=== PATIENT | male | born 1950 | race Native Hawaiian/Other Pacific Islander ===

== ENCOUNTER 2018-04-09 07:36 | Day surgery (SDC) | payer OTHER ==
[~2018-04-09 07:36] MED LIST: ACET7.5T70 PO; AMIO200T14 PO; ASA LO-DOSE81 MG OR; CARV3.12 PO; DOCU100C10 PO; FURO40TA93 PO; GABA100C2 PO; KLOR-CON M2020 MEQ OR; MENS MULTI OR; MOBIC7.5 M1 OR; NITROSTAT0.4 MG SL; RANO500T PO; SIMV20TA2 PO; TRIM800T12 PO; [UNRECOGNIZED DRUG - OTHER] OR
[2018-04-09 08:38] LABS: PLATELET COUNT 310 K/uL (142-355)
[2018-04-09 08:49] LABS: POTASSIUM 4.1 mmol/L (3.6-5.2)
[2018-04-09 08:52] LABS: PARTIAL THROMBOPLASTIN TIME 26.3 SECONDS (24.5-33.6)
== END 2018-04-09 11:32 | disposition home or self-care (01) ==
LOC: OR 07:36
PROVIDERS: Student in an Organized Health Care Education/Training Program
PROC: 0DBK8ZZ Excision of Ascending Colon, Via Natural or Artificial Opening Endoscopic (ICD-10-PCS; principal; 2018-04-09)
PROC: 0DBM8ZZ Excision of Descending Colon, Via Natural or Artificial Opening Endoscopic (ICD-10-PCS; 2018-04-09)
DX: K63.5 Polyp of colon (principal); D12.3 Benign neoplasm of transverse colon; K57.30 Diverticulosis of large intestine without perforation or abscess without bleeding; Z12.11 Encounter for screening for malignant neoplasm of colon
CPT/HCPCS: 80053; 85027; 85610; 85730; 93005; J2001; J2250; J2704; J3490

== ENCOUNTER 2019-02-09 19:43 | Outpatient (CLI) | payer OTHER ==
[2019-02-09] MEDS ORDERED: BENZONATATE200 MG PO (20:24)
[2019-02-09] MEDS ORDERED: DOCUSATE SODIUM1 TAB PO (20:24)
[2019-02-09] MEDS ORDERED: TRAMADOL HYDROC50 MG PO (20:25)
[2019-02-09] MEDS ORDERED: NEURONTIN 100M100 MG PO (20:26)
[2019-02-09] MEDS ORDERED: ROBAXIN-750750 MG PO (20:26)
[2019-02-09] MEDS ORDERED: SLEEP AID25 M2 PO (20:27)
[2019-02-10] MEDS ORDERED: RANO500T PO (08:50)
[2019-02-10] MEDS ORDERED: CARV3.12 PO (10:16)
[2019-02-10] MEDS ORDERED: FURO40TA93 PO (10:17)
[2019-02-10] MEDS ORDERED: POTASSIUM CHLO20 ME1 PO (10:18)
== END 2019-02-09 19:46 | disposition short-term general hospital (02) ==
LOC: AMB 19:43
DX: R50.9 Fever, unspecified (principal); M54.9 Dorsalgia, unspecified; M54.2 Cervicalgia
CPT/HCPCS: A0425; A0427

== ENCOUNTER 2019-02-09 19:50 | Inpatient (IN) | payer OTHER ==
[~2019-02-09] VITALS: Ht 177.8 cm; Wt 133.9 kg
[2019-02-09 20:10] VITALS: BP 177/87; TEMP 103.1
[2019-02-09 20:17] LABS: PLATELET COUNT 317 K/uL (142-355)
[2019-02-09] MEDS ORDERED: DOCUSATE SODIUM1 TAB PO (20:24)
[2019-02-09] MEDS ORDERED: BENZONATATE200 MG PO (20:24)
[2019-02-09] MEDS ORDERED: TRAMADOL HYDROC50 MG PO (20:25)
[2019-02-09] MEDS ORDERED: ROBAXIN-750750 MG PO (20:26)
[2019-02-09] MEDS ORDERED: NEURONTIN 100M100 MG PO (20:26)
[2019-02-09] MEDS ORDERED: SLEEP AID25 M2 PO (20:27)
[2019-02-09 20:41] LABS: POTASSIUM 3.7 mmol/L (3.6-5.2); SODIUM 133 mmol/L (136-145)
[2019-02-09 22:33] VITALS: TEMP 101.1
[2019-02-10] VITALS (7 sets, daily range): BP systolic 84–130; BP diastolic 44–74; TEMP 97.7–100.3; Ht 177.8 cm; Wt 133.9 kg
[2019-02-10 06:20] LABS: PLATELET COUNT 243 K/uL (142-355)
[2019-02-10 06:37] LABS: POTASSIUM 4.1 mmol/L (3.6-5.2)
[2019-02-10] MEDS ORDERED: RANO500T PO (08:50)
[2019-02-10] MEDS ORDERED: CARV3.12 PO (10:16)
[2019-02-10] MEDS ORDERED: FURO40TA93 PO (10:17)
[2019-02-10] MEDS ORDERED: POTASSIUM CHLO20 ME1 PO (10:18)
== END 2019-02-10 20:20 | disposition short-term general hospital (02) | DRG 871 ==
LOC: ED 19:50 → MED/SURG 23:50
PROVIDERS: ADMIT Family Medicine
DX: A40.1 Sepsis due to streptococcus, group B (principal); J18.8 Other pneumonia, unspecified organism; I26.99 Other pulmonary embolism without acute cor pulmonale; N17.8 Other acute kidney failure; E87.1 Hypo-osmolality and hyponatremia; E11.9 Type 2 diabetes mellitus without complications; G47.09 Other insomnia; R11.10 Vomiting, unspecified; I10 Essential (primary) hypertension; I95.89 Other hypotension; E86.1 Hypovolemia; I25.2 Old myocardial infarction; Z95.1 Presence of aortocoronary bypass graft
CPT/HCPCS: 36600; 80053; 81000; 82550; 82553; 82805; 83605; 83880; 84484; 85007; 85027; 85379; 85610; 86140; 87040; 87077; 87185; 87186; 87205; 87899; 93005; 94664; 94760; 96361; 96365; 96375; 96376; 99284; J0456; J0696; J1650; J2405; J3370

== ENCOUNTER 2019-02-14 12:43 | Outpatient (CLI) | payer OTHER ==
[~2019-02-14] VITALS: Ht 177.8 cm; Wt 135.8 kg
[~2019-02-14 12:43] MED LIST changes: +BENZONATATE200 MG PO; +DOCUSATE SODIUM1 TAB PO; +NEURONTIN 100M100 MG PO; +POTASSIUM CHLO20 ME1 PO; +ROBAXIN-750750 MG PO; +SLEEP AID25 M2 PO; +TRAMADOL HYDROC50 MG PO
[2019-02-14 12:55] VITALS: BP 119/56; TEMP 97.9
== END 2019-02-14 14:21 | disposition home or self-care (01) ==
LOC: INF 12:43
DX: A40.1 Sepsis due to streptococcus, group B (principal); R65.20 Severe sepsis without septic shock
CPT/HCPCS: 96365; 96375; J0696

== ENCOUNTER 2019-02-15 13:03 | Outpatient (CLI) | payer OTHER ==
[~2019-02-15] VITALS: Ht 175.3 cm; Wt 70.5 kg
== END 2019-02-15 14:45 | disposition home or self-care (01) ==
LOC: INF 13:03
DX: A41.9 Sepsis, unspecified organism (principal)
CPT/HCPCS: 96365; 96375; J0696; J1642

== ENCOUNTER 2019-02-16 13:46 | Outpatient (CLI) | payer OTHER ==
[~2019-02-16] VITALS: Ht 175.3 cm; Wt 70.5 kg
== END 2019-02-16 14:30 | disposition home or self-care (01) ==
LOC: INF 13:46
DX: A40.1 Sepsis due to streptococcus, group B (principal)
CPT/HCPCS: 96365; 96375; J0696; J1642

== ENCOUNTER 2019-02-17 12:45 | Outpatient (CLI) | payer OTHER ==
[~2019-02-17] VITALS: Ht 175.3 cm; Wt 70.5 kg
[2019-02-17 13:05] VITALS: BP 134/70; TEMP 97.8
== END 2019-02-17 13:58 | disposition home or self-care (01) ==
LOC: INF 12:45
DX: A40.1 Sepsis due to streptococcus, group B (principal)
CPT/HCPCS: 96365; 96375; J0696

== ENCOUNTER 2019-02-18 12:12 | Outpatient (CLI) | payer OTHER ==
[~2019-02-18] VITALS: Ht 175.3 cm; Wt 61.4 kg
[2019-02-18 13:00] VITALS: BP 151/61; TEMP 98.6
== END 2019-02-18 13:45 | disposition home or self-care (01) ==
LOC: INF 12:12
DX: A40.1 Sepsis due to streptococcus, group B (principal)
CPT/HCPCS: 96365; 96375; J0696

== ENCOUNTER 2019-02-19 11:17 | Outpatient (CLI) | payer OTHER ==
[~2019-02-19] VITALS: Ht 175.3 cm; Wt 135.8 kg
[2019-02-19 12:40] VITALS: BP 170/84; TEMP 97.6
== END 2019-02-19 13:39 | disposition home or self-care (01) ==
LOC: INF 11:17
DX: A40.1 Sepsis due to streptococcus, group B (principal)
CPT/HCPCS: 96365; 96375; J0696

== ENCOUNTER 2019-02-20 11:38 | Outpatient (CLI) | payer OTHER ==
[~2019-02-20] VITALS: Ht 175.3 cm; Wt 135.8 kg
[2019-02-20 12:46] VITALS: BP 136/76; TEMP 97.8
== END 2019-02-20 14:09 | disposition home or self-care (01) ==
LOC: INF 11:38
DX: A40.1 Sepsis due to streptococcus, group B (principal)
CPT/HCPCS: 96365; 96375; J0696

== ENCOUNTER 2019-02-21 12:30 | Outpatient (CLI) | payer OTHER ==
[~2019-02-21] VITALS: Ht 33 cm; Wt 0.5 kg
[2019-02-21 12:55] VITALS: BP 135/77; TEMP 98
== END 2019-02-21 13:43 | disposition home or self-care (01) ==
LOC: INF 12:30
DX: A40.1 Sepsis due to streptococcus, group B (principal)
CPT/HCPCS: 96365; 96375; J0696

== ENCOUNTER 2019-02-22 12:56 | Outpatient (CLI) | payer OTHER | END 2019-02-22 13:41 | disposition home or self-care (01) | LOC: INF 12:56 | DX: A40.1 Sepsis due to streptococcus, group B (principal) | CPT/HCPCS: 96365; 96375 ==

== ENCOUNTER 2019-02-23 12:54 | Outpatient (CLI) | payer OTHER | END 2019-02-23 13:35 | disposition home or self-care (01) | LOC: INF 12:54 | DX: A40.1 Sepsis due to streptococcus, group B (principal) | CPT/HCPCS: 96365 ==

== ENCOUNTER 2019-12-26 18:05 | Emergency (ER) | payer OTHER ==
[~2019-12-26] VITALS: Ht 180.3 cm; Wt 128.4 kg
[2019-12-26 21:18] LABS: PLATELET COUNT 333 K/uL (142-355)
[2019-12-26 21:37] LABS: POTASSIUM 4.3 mmol/L (3.6-5.2)
[2019-12-26 22:40] VITALS: BP 175/82; TEMP 98.1
== END 2019-12-26 22:40 | disposition home or self-care (01) ==
LOC: ED 18:05
PROVIDERS: Family Medicine
DX: S80.812A Abrasion, left lower leg, initial encounter (principal); S20.212A Contusion of left front wall of thorax, initial encounter; S80.02XA Contusion of left knee, initial encounter; W18.39XA Other fall on same level, initial encounter; Y92.89 Other specified places as the place of occurrence of the external cause
CPT/HCPCS: 36415; 80053; 81000; 85027; 99283

== ENCOUNTER 2022-11-19 08:52 | Emergency (ER) | payer OTHER ==
[~2022-11-19] VITALS: Ht 180.3 cm; Wt 128.4 kg
[2022-11-19 08:52] VITALS: TEMP 97.2
[2022-11-19 11:30] VITALS: BP 206/99
== END 2022-11-19 11:30 | disposition home or self-care (01) ==
LOC: ED 08:52
DX: S72.112A Displaced fracture of greater trochanter of left femur, initial encounter for closed fracture (principal); W01.0XXA Fall on same level from slipping, tripping and stumbling without subsequent striking against object, initial encounter; Y92.89 Other specified places as the place of occurrence of the external cause
CPT/HCPCS: 99283

== ENCOUNTER 2022-12-06 08:06 | Outpatient (CLI) | payer OTHER | END 2022-12-06 19:31 | disposition home or self-care (01) | LOC: MRI 08:06 | PROVIDERS: ATTEND Nurse Practitioner Family | DX: S72.091D Other fracture of head and neck of right femur, subsequent encounter for closed fracture with routine healing (principal); Y92.89 Other specified places as the place of occurrence of the external cause ==